=== PATIENT | male | born 1970 | race American Indian/Alaskan Native ===

== ENCOUNTER → 2018-03-27 | Outpatient (CLI) | payer BC ==
[~2018-03-27] MED LIST: XYLOCAINE TOPICAL 4% TP ONE
== END | disposition home or self-care (01) ==
LOC: WOUND 08:35
PROVIDERS: ATTEND Surgery
DX: E11.621 Type 2 diabetes mellitus with foot ulcer (principal); L97.512 Non-pressure chronic ulcer of other part of right foot with fat layer exposed; Z89.412 Acquired absence of left great toe; Z89.411 Acquired absence of right great toe; Z87.891 Personal history of nicotine dependence
CPT/HCPCS: 11042; 11045; G0463

== ENCOUNTER 2018-04-03 08:15 | Outpatient (CLI) | payer BC ==
[2018-04-03] MEDS ORDERED: XYLOCAINE TOPICAL 4% TP ONE ×2 (08:34→08:36)
== END 2018-04-03 08:16 | disposition home or self-care (01) ==
LOC: WOUND 08:15
PROVIDERS: ATTEND Surgery
DX: E11.621 Type 2 diabetes mellitus with foot ulcer (principal); L97.512 Non-pressure chronic ulcer of other part of right foot with fat layer exposed; Z89.412 Acquired absence of left great toe; Z89.411 Acquired absence of right great toe; Z87.891 Personal history of nicotine dependence

== ENCOUNTER 2018-04-08 07:43 | Outpatient (CLI) | payer BC ==
[2018-04-08 08:04] LABS: Basophils % (Auto) 0.8 % (0.0-1.8); Eosinophils # (Auto) 0.4 K/mm3 (0.0-0.4); Eosinophils % (Auto) 8.7 % (0.0-4.3); Hematocrit 30.2 % (35.5-45.6); Hemoglobin 10.3 gm/dl (11.8-15.2); Lymphocytes # (Auto) 1.6 K/mm3 (1.2-5.4); Lymphocytes % (Auto) 37.8 % (13.4-35.0); Mean Corpuscular HGB Conc 34 % (32-34); Mean Corpuscular Hemoglobin 30 pg (28-32); Mean Corpuscular Volume 89 fl (84-94); Monocytes # (Auto) 0.4 K/mm3 (0.0-0.8); Monocytes % (Auto) 8.6 % (0.0-7.3); Platelet Count 210 K/mm3 (140-440); Red Cell Distribution Width 13.8 % (13.2-15.2)
[2018-04-08 08:21] LABS: BUN/Creatinine Ratio 21; Blood Urea Nitrogen 19 mg/dL (9-20); Calcium 9.3 mg/dL (8.4-10.2); Hemolysis Index 1
--- NOTE | 2018-04-08 10:42 | Magnetic Resonance Report ---
MR LOWER EXTREMITY NON-JOINT RIGHT WITHOUT/WITH CONTRAST History: Type 2 diabetes with foot ulcer. Technique: Multisequence, multiplanar MRI before and after IV gadolinium was performed through the left foot. Comparison: No relevant comparison at this facility. Findings: Previous amputation of the great left toe is suspected, please correlate with surgical history. There is diffuse soft tissue swelling and enhancement consistent with cellulitis. There is a complex fluid collection with peripheral enhancement just distal to the first metatarsal head measuring 2.4 x 1.8 x 1.5 cm consistent with abscess. There are small fingerlike projections extending from this main collection between the first and second metatarsal heads and along dorsum of the foot overlying metatarsal heads 1-3 which is also consistent with abscess. Skin ulceration is noted distal to the first metatarsal head as well as on the dorsum of the foot. There is decreased T1 signal, bone marrow edema and mild enhancement of the distal first metatarsal consistent with osteomyelitis. The bone marrow signal in the remaining bones of the left foot is within normal limits. No additional areas of osteomyelitis is identified. The musculotendinous structures appear intact. The plantar fascia is intact. IMPRESSION: Cellulitis. Complex abscess in the distal foot as described. Osteomyelitis of the first metatarsal.
== END 2018-04-08 07:44 | disposition home or self-care (01) ==
LOC: MRI 07:43
PROVIDERS: ATTEND Surgery
DX: L02.611 Cutaneous abscess of right foot (principal); L03.115 Cellulitis of right lower limb; M86.8X7 Other osteomyelitis, ankle and foot; E11.621 Type 2 diabetes mellitus with foot ulcer; I10 Essential (primary) hypertension; Z87.891 Personal history of nicotine dependence
CPT/HCPCS: 36415; 73720; 80048; 83036; 85025; A9577

== ENCOUNTER 2018-04-16 07:50 | Outpatient (CLI) | payer BC | END 2018-04-16 07:51 | disposition home or self-care (01) | LOC: WOUND 07:50 | PROVIDERS: ATTEND Surgery | DX: E11.621 Type 2 diabetes mellitus with foot ulcer (principal); L97.512 Non-pressure chronic ulcer of other part of right foot with fat layer exposed; Z89.412 Acquired absence of left great toe; Z89.411 Acquired absence of right great toe; Z87.891 Personal history of nicotine dependence | CPT/HCPCS: 82962; G0277; 99183 ==

== ENCOUNTER 2018-04-17 07:49 | Outpatient (CLI) | payer BC | END 2018-04-17 07:50 | disposition home or self-care (01) | LOC: WOUND 07:49 | PROVIDERS: ATTEND Surgery | DX: E11.621 Type 2 diabetes mellitus with foot ulcer (principal); L97.512 Non-pressure chronic ulcer of other part of right foot with fat layer exposed; Z89.412 Acquired absence of left great toe; Z89.411 Acquired absence of right great toe; Z87.891 Personal history of nicotine dependence | CPT/HCPCS: 11042; 11045; 82962; G0277; 99183 ==

== ENCOUNTER 2018-04-18 12:04 | Day surgery (SDC) | payer BC ==
[~2018-04-18 12:04] MED LIST changes: +HEPARIN SUB-Q NR; -XYLOCAINE TOPICAL 4% TP ONE
[2018-04-18] MEDS ORDERED: DILAUDID IV PRN ×2 (13:21→15:54)
[2018-04-18] MEDS ORDERED: ZOFRAN IV PRN ×2 (13:21→15:54)
--- NOTE | 2018-04-18 13:22 | Anesthesia Consultation ---
Anesthesia Consult and Med Hx Date of service: 04/18/18 - Airway Anesthetic Teeth Evaluation: Good ROM Head & Neck: Adequate Mental/Hyoid Distance: Adequate Mallampati Class: Class II Intubation Access Assessment: Probably Good - Pulmonary Exam CTA: Yes - Cardiac Exam Cardiac Exam: RRR - Pre-Operative Health Status ASA Pre-Surgery Classification: ASA2 Proposed Anesthetic Plan: General (Ga with LMA) - Pulmonary Hx Smoking: Yes (FORMER FROM [id number]) Hx Asthma: No Hx Respiratory Symptoms: No SOB: No COPD: No Hx Pneumonia: No Hx Sleep Apnea: No - Cardiovascular System Hx Hypertension: Yes (most likely undiagnoses and untreated) - Central Nervous System Hx Psychiatric Problems: No - Endocrine Hx Non-Insulin Dependent Diabetes: Yes (non compliant with meds x 4 years) - Hematic Hx Anemia: Yes - Other Systems Hx Cancer: No
--- NOTE | 2018-04-18 13:22 | Anesthesia Day of Surgery ---
Anesthesia Day of Surgery - Day of Surgery Patient Examined: Yes Patient H&P Reviewed: Yes Patient is NPO: Yes
[2018-04-18] MEDS ORDERED: ZOSYN/NS 4.5GM/100ML 4.5 GM/100 ML VIAL IV SCH (14:00)
[2018-04-18] MEDS ORDERED: VERSED IV NR (14:00)
[2018-04-18] MEDS ORDERED: LACTATED RINGERS 1,000 ML IV SCH (14:00)
[2018-04-18] MEDS ORDERED: SUBLIMAZE ONE (14:53)
[2018-04-18] MEDS ORDERED: VERSED ONE (14:55)
[2018-04-18] MEDS ORDERED: DIPRIVAN 10 MG/ML IV ONE ×2 (14:56)
[2018-04-18] MEDS ORDERED: ZOFRAN ONE (15:10)
[2018-04-18] MEDS ORDERED: NACL 0.9% IR ONE (15:10)
--- NOTE | 2018-04-18 15:50 | Procedure Note ---
Date of procedure: 04/18/18 Pre-op diagnosis: Osteomyelitis/abscess of right 1st metatarsal head Post-op diagnosis: other (Osteomyelitis of right 1st metatarsal head) Procedure: Right 1st transmetatarsal amputation Description of procedure: Pt was placed supine on the OR table. General anesthesia by LMA was administered. The right foot was prepped and draped. An incision was made connecting the right distal and right proximal foot wounds over the right 1st metatarsal head. The proximal portion of the right 1st proximal phalanx was present and this was sharply excised. The periosteum was then elevated off of the right 1st metatarsal head and distal shaft. The metatarsal head was amputated with a bone saw and was passed off of the table. No abscess was encountered as was suggested on the pt's pre-op MRI. Hemostasis was obtained with the Bovie. The wound was packed open with a dilute, Betadine moistened Kerlix roll followed by a 2nd Kerlix roll about the foot and ankle. Pt tolerated the procedure well. He was taken to PACU in stable condition. Anesthesia: other (LMA) Surgeon: RAVINDRA CERNA Estimated blood loss: 50-100ml Pathology: list (1) Right 1st proximal phalanx 2) Right 1st metatarsal head) Specimen disposition: to lab Condition: stable Disposition: PACU
[2018-04-18 16:25] VITALS: BP 120/81
== END 2018-04-18 17:08 | disposition home or self-care (01) ==
LOC: OR 12:04
PROVIDERS: ATTEND Surgery
DX: M86.8X7 Other osteomyelitis, ankle and foot (principal); E13.10 Other specified diabetes mellitus with ketoacidosis without coma; E78.00 Pure hypercholesterolemia, unspecified; I10 Essential (primary) hypertension; Z86.2 Personal history of diseases of the blood and blood-forming organs and certain disorders involving the immune mechanism; Z91.19 Patient's noncompliance with other medical treatment and regimen; Z87.891 Personal history of nicotine dependence; Z79.899 Other long term (current) drug therapy; Z79.4 Long term (current) use of insulin; Z82.49 Family history of ischemic heart disease and other diseases of the circulatory system
CPT/HCPCS: 28820; 82962; 88304; 88311; J1644; J2250; J2405; J2543; J2704; J3010; J7120; 88302

== ENCOUNTER 2018-04-22 07:52 | Outpatient (CLI) | payer BC ==
[~2018-04-22 07:52] MED LIST changes: -HEPARIN SUB-Q NR; +XYLOCAINE TOPICAL 4% TP ONE
== END 2018-04-22 07:53 | disposition home or self-care (01) ==
LOC: WOUND 07:52
PROVIDERS: ATTEND Surgery
DX: T87.89 Other complications of amputation stump (principal); E11.621 Type 2 diabetes mellitus with foot ulcer; L97.512 Non-pressure chronic ulcer of other part of right foot with fat layer exposed; Z87.891 Personal history of nicotine dependence; Y83.5 Amputation of limb(s) as the cause of abnormal reaction of the patient, or of later complication, without mention of misadventure at the time of the procedure
CPT/HCPCS: 82962; G0277; 99183

== ENCOUNTER 2018-04-23 07:48 | Outpatient (CLI) | payer BC ==
[2018-04-23] MEDS ORDERED: XYLOCAINE TOPICAL 4% TP ONE ×2 (11:08→11:12)
[2018-04-23] MEDS ORDERED: DAKIN'S FULL STRENGTH TP ONE (11:30)
== END 2018-04-23 07:49 | disposition home or self-care (01) ==
LOC: WOUND 07:48
PROVIDERS: ATTEND Surgery
DX: T87.89 Other complications of amputation stump (principal); E11.621 Type 2 diabetes mellitus with foot ulcer; L97.512 Non-pressure chronic ulcer of other part of right foot with fat layer exposed; Z87.891 Personal history of nicotine dependence; Y83.5 Amputation of limb(s) as the cause of abnormal reaction of the patient, or of later complication, without mention of misadventure at the time of the procedure
CPT/HCPCS: 11043; 11046; 82962; G0277; 99183

== ENCOUNTER 2018-04-24 07:50 | Outpatient (CLI) | payer BC | END 2018-04-24 07:51 | disposition home or self-care (01) | LOC: WOUND 07:50 | PROVIDERS: ATTEND Surgery | DX: T87.89 Other complications of amputation stump (principal); E11.621 Type 2 diabetes mellitus with foot ulcer; L97.512 Non-pressure chronic ulcer of other part of right foot with fat layer exposed; Z87.891 Personal history of nicotine dependence; Y83.5 Amputation of limb(s) as the cause of abnormal reaction of the patient, or of later complication, without mention of misadventure at the time of the procedure | CPT/HCPCS: 82962; G0277; 99183 ==

== ENCOUNTER 2018-04-25 07:50 | Outpatient (CLI) | payer BC | END 2018-04-25 07:51 | disposition home or self-care (01) | LOC: WOUND 07:50 | PROVIDERS: ATTEND Surgery | DX: T87.89 Other complications of amputation stump (principal); E11.621 Type 2 diabetes mellitus with foot ulcer; L97.512 Non-pressure chronic ulcer of other part of right foot with fat layer exposed; Z87.891 Personal history of nicotine dependence; Y83.5 Amputation of limb(s) as the cause of abnormal reaction of the patient, or of later complication, without mention of misadventure at the time of the procedure | CPT/HCPCS: 82962; G0277; 99183 ==

== ENCOUNTER 2018-04-26 07:49 | Outpatient (CLI) | payer BC ==
[2018-04-26] MEDS ORDERED: XYLOCAINE TOPICAL 2% 5ML TP ONE (08:35)
== END 2018-04-26 07:50 | disposition home or self-care (01) ==
LOC: WOUND 07:49
PROVIDERS: ATTEND Surgery
DX: T87.89 Other complications of amputation stump (principal); E11.621 Type 2 diabetes mellitus with foot ulcer; L97.512 Non-pressure chronic ulcer of other part of right foot with fat layer exposed; Z87.891 Personal history of nicotine dependence; Y83.5 Amputation of limb(s) as the cause of abnormal reaction of the patient, or of later complication, without mention of misadventure at the time of the procedure
CPT/HCPCS: 82962; G0277; 99183

== ENCOUNTER 2018-04-29 07:48 | Outpatient (CLI) | payer BC | END 2018-04-29 07:49 | disposition home or self-care (01) | LOC: WOUND 07:48 | PROVIDERS: ATTEND Surgery | DX: T87.89 Other complications of amputation stump (principal); E11.621 Type 2 diabetes mellitus with foot ulcer; L97.512 Non-pressure chronic ulcer of other part of right foot with fat layer exposed; Z87.891 Personal history of nicotine dependence; Y83.5 Amputation of limb(s) as the cause of abnormal reaction of the patient, or of later complication, without mention of misadventure at the time of the procedure | CPT/HCPCS: 82962; G0277; 99183 ==

== ENCOUNTER 2018-04-30 07:47 | Outpatient (CLI) | payer BC | END 2018-04-30 07:48 | disposition home or self-care (01) | LOC: WOUND 07:47 | PROVIDERS: ATTEND Surgery | DX: T87.89 Other complications of amputation stump (principal); E11.621 Type 2 diabetes mellitus with foot ulcer; L97.512 Non-pressure chronic ulcer of other part of right foot with fat layer exposed; Z87.891 Personal history of nicotine dependence; Y83.5 Amputation of limb(s) as the cause of abnormal reaction of the patient, or of later complication, without mention of misadventure at the time of the procedure | CPT/HCPCS: 82962; G0277; 99183 ==

== ENCOUNTER 2018-05-01 07:50 | Outpatient (CLI) | payer BC ==
[2018-05-01] MEDS ORDERED: XYLOCAINE TOPICAL 4% TP ONE ×2 (11:03→12:29)
== END 2018-05-01 07:51 | disposition home or self-care (01) ==
LOC: WOUND 07:50
PROVIDERS: ATTEND Surgery
DX: T87.89 Other complications of amputation stump (principal); E11.621 Type 2 diabetes mellitus with foot ulcer; L97.512 Non-pressure chronic ulcer of other part of right foot with fat layer exposed; Z87.891 Personal history of nicotine dependence; Y83.5 Amputation of limb(s) as the cause of abnormal reaction of the patient, or of later complication, without mention of misadventure at the time of the procedure
CPT/HCPCS: 11042; 11045; 82962; G0277; 99183

== ENCOUNTER 2018-05-02 07:54 | Outpatient (CLI) | payer BC | END 2018-05-02 07:55 | disposition home or self-care (01) | LOC: WOUND 07:54 | PROVIDERS: ATTEND Surgery | DX: T87.89 Other complications of amputation stump (principal); E11.621 Type 2 diabetes mellitus with foot ulcer; L97.512 Non-pressure chronic ulcer of other part of right foot with fat layer exposed; Z87.891 Personal history of nicotine dependence; Y83.5 Amputation of limb(s) as the cause of abnormal reaction of the patient, or of later complication, without mention of misadventure at the time of the procedure | CPT/HCPCS: 82962; G0277; 99183 ==

== ENCOUNTER 2018-05-03 07:50 | Outpatient (CLI) | payer BC | END 2018-05-03 07:51 | disposition home or self-care (01) | LOC: WOUND 07:50 | PROVIDERS: ATTEND Surgery | DX: T87.89 Other complications of amputation stump (principal); E11.621 Type 2 diabetes mellitus with foot ulcer; L97.512 Non-pressure chronic ulcer of other part of right foot with fat layer exposed; Z87.891 Personal history of nicotine dependence; Y83.5 Amputation of limb(s) as the cause of abnormal reaction of the patient, or of later complication, without mention of misadventure at the time of the procedure | CPT/HCPCS: 82962; G0277; 99183 ==

== ENCOUNTER 2018-05-06 07:50 | Outpatient (CLI) | payer BC | END 2018-05-06 07:51 | disposition home or self-care (01) | LOC: WOUND 07:50 | PROVIDERS: ATTEND Surgery | DX: T87.89 Other complications of amputation stump (principal); E11.621 Type 2 diabetes mellitus with foot ulcer; L97.512 Non-pressure chronic ulcer of other part of right foot with fat layer exposed; Z87.891 Personal history of nicotine dependence; Y83.5 Amputation of limb(s) as the cause of abnormal reaction of the patient, or of later complication, without mention of misadventure at the time of the procedure | CPT/HCPCS: 82962; G0277; 99183 ==

== ENCOUNTER 2018-05-07 07:55 | Outpatient (CLI) | payer BC | END 2018-05-07 07:56 | disposition home or self-care (01) | LOC: WOUND 07:55 | PROVIDERS: ATTEND Surgery | DX: T87.89 Other complications of amputation stump (principal); E11.621 Type 2 diabetes mellitus with foot ulcer; L97.512 Non-pressure chronic ulcer of other part of right foot with fat layer exposed; Z87.891 Personal history of nicotine dependence; Y83.5 Amputation of limb(s) as the cause of abnormal reaction of the patient, or of later complication, without mention of misadventure at the time of the procedure | CPT/HCPCS: 82962; G0277; 99183 ==

== ENCOUNTER 2018-05-08 07:52 | Outpatient (CLI) | payer BC | END 2018-05-08 07:53 | disposition home or self-care (01) | LOC: WOUND 07:52 | PROVIDERS: ATTEND Surgery | DX: T87.89 Other complications of amputation stump (principal); E11.621 Type 2 diabetes mellitus with foot ulcer; L97.512 Non-pressure chronic ulcer of other part of right foot with fat layer exposed; Z87.891 Personal history of nicotine dependence; Y83.5 Amputation of limb(s) as the cause of abnormal reaction of the patient, or of later complication, without mention of misadventure at the time of the procedure | CPT/HCPCS: 11042; 11045; 82962; G0277; 99183 ==

== ENCOUNTER 2018-05-09 08:07 | Outpatient (CLI) | payer BC | END 2018-05-09 08:08 | disposition home or self-care (01) | LOC: WOUND 08:07 | PROVIDERS: ATTEND Surgery | DX: T87.89 Other complications of amputation stump (principal); E11.621 Type 2 diabetes mellitus with foot ulcer; L97.512 Non-pressure chronic ulcer of other part of right foot with fat layer exposed; Z87.891 Personal history of nicotine dependence; Y83.5 Amputation of limb(s) as the cause of abnormal reaction of the patient, or of later complication, without mention of misadventure at the time of the procedure | CPT/HCPCS: 82962; G0277; 99183 ==

== ENCOUNTER 2018-05-10 07:55 | Outpatient (CLI) | payer BC | END 2018-05-10 07:56 | disposition home or self-care (01) | LOC: WOUND 07:55 | PROVIDERS: ATTEND Surgery | DX: T87.89 Other complications of amputation stump (principal); E11.621 Type 2 diabetes mellitus with foot ulcer; L97.512 Non-pressure chronic ulcer of other part of right foot with fat layer exposed; Z87.891 Personal history of nicotine dependence; Y83.5 Amputation of limb(s) as the cause of abnormal reaction of the patient, or of later complication, without mention of misadventure at the time of the procedure | CPT/HCPCS: 82962; G0277; 99183 ==

== ENCOUNTER 2018-05-15 07:56 | Outpatient (CLI) | payer BC ==
[2018-05-15] MEDS ORDERED: XYLOCAINE TOPICAL 4% TP ONE (11:08)
[2018-05-15] MEDS ORDERED: SILVER NITRATE TP ONE (13:00)
== END 2018-05-15 07:57 | disposition home or self-care (01) ==
LOC: WOUND 07:56
PROVIDERS: ATTEND Surgery
DX: T87.89 Other complications of amputation stump (principal); E11.621 Type 2 diabetes mellitus with foot ulcer; L97.512 Non-pressure chronic ulcer of other part of right foot with fat layer exposed; Z87.891 Personal history of nicotine dependence; Y83.5 Amputation of limb(s) as the cause of abnormal reaction of the patient, or of later complication, without mention of misadventure at the time of the procedure
CPT/HCPCS: 11042; 82962; G0277; 99183

== ENCOUNTER 2018-05-16 07:54 | Outpatient (CLI) | payer BC ==
[~2018-05-16 07:54] MED LIST changes: +SILVER NITRATE TP ONE; -XYLOCAINE TOPICAL 4% TP ONE
== END 2018-05-16 07:55 | disposition home or self-care (01) ==
LOC: WOUND 07:54
PROVIDERS: ATTEND Surgery
DX: T87.89 Other complications of amputation stump (principal); E11.621 Type 2 diabetes mellitus with foot ulcer; L97.512 Non-pressure chronic ulcer of other part of right foot with fat layer exposed; Z87.891 Personal history of nicotine dependence; Y83.5 Amputation of limb(s) as the cause of abnormal reaction of the patient, or of later complication, without mention of misadventure at the time of the procedure
CPT/HCPCS: 82962; G0277; 99183

== ENCOUNTER 2018-05-17 07:51 | Outpatient (CLI) | payer BC | END 2018-05-17 07:52 | disposition home or self-care (01) | LOC: WOUND 07:51 | PROVIDERS: ATTEND Surgery | DX: T87.89 Other complications of amputation stump (principal); E11.621 Type 2 diabetes mellitus with foot ulcer; L97.512 Non-pressure chronic ulcer of other part of right foot with fat layer exposed; Z87.891 Personal history of nicotine dependence; Y83.5 Amputation of limb(s) as the cause of abnormal reaction of the patient, or of later complication, without mention of misadventure at the time of the procedure | CPT/HCPCS: 82962; G0277; 99183 ==

== ENCOUNTER 2018-05-20 07:57 | Outpatient (CLI) | payer BC | END 2018-05-20 07:58 | disposition home or self-care (01) | LOC: WOUND 07:57 | PROVIDERS: ATTEND Surgery | DX: T87.89 Other complications of amputation stump (principal); E11.621 Type 2 diabetes mellitus with foot ulcer; L97.512 Non-pressure chronic ulcer of other part of right foot with fat layer exposed; Z87.891 Personal history of nicotine dependence; Y83.5 Amputation of limb(s) as the cause of abnormal reaction of the patient, or of later complication, without mention of misadventure at the time of the procedure | CPT/HCPCS: 82962; G0277; 99183 ==

== ENCOUNTER 2018-05-21 07:58 | Outpatient (CLI) | payer BC | END 2018-05-21 07:59 | disposition home or self-care (01) | LOC: WOUND 07:58 | PROVIDERS: ATTEND Surgery | DX: T87.89 Other complications of amputation stump (principal); E11.621 Type 2 diabetes mellitus with foot ulcer; L97.512 Non-pressure chronic ulcer of other part of right foot with fat layer exposed; Z87.891 Personal history of nicotine dependence; Y83.5 Amputation of limb(s) as the cause of abnormal reaction of the patient, or of later complication, without mention of misadventure at the time of the procedure | CPT/HCPCS: 82962; G0277; 99183 ==

== ENCOUNTER 2018-05-31 07:46 | Outpatient (CLI) | payer BC | END 2018-05-31 07:47 | disposition home or self-care (01) | LOC: WOUND 07:46 | PROVIDERS: ATTEND Surgery | DX: T87.89 Other complications of amputation stump (principal); E11.621 Type 2 diabetes mellitus with foot ulcer; L97.512 Non-pressure chronic ulcer of other part of right foot with fat layer exposed; Z87.891 Personal history of nicotine dependence; Y83.5 Amputation of limb(s) as the cause of abnormal reaction of the patient, or of later complication, without mention of misadventure at the time of the procedure | CPT/HCPCS: 82962; G0277; 99183 ==

== ENCOUNTER 2018-06-04 07:48 | Outpatient (CLI) | payer BC | END 2018-06-04 07:49 | disposition home or self-care (01) | LOC: WOUND 07:48 | PROVIDERS: ATTEND Surgery | DX: T87.89 Other complications of amputation stump (principal); E11.621 Type 2 diabetes mellitus with foot ulcer; L97.512 Non-pressure chronic ulcer of other part of right foot with fat layer exposed; Z87.891 Personal history of nicotine dependence; Y83.5 Amputation of limb(s) as the cause of abnormal reaction of the patient, or of later complication, without mention of misadventure at the time of the procedure | CPT/HCPCS: 82962; G0277; 99183 ==

== ENCOUNTER 2018-06-05 07:48 | Outpatient (CLI) | payer BC ==
[2018-06-05] MEDS ORDERED: XYLOCAINE TOPICAL 4% TP ONE ×2 (10:33)
[2018-06-05] MEDS ORDERED: XYLOCAINE TOPICAL 2% 5ML TP ONE (10:47)
== END 2018-06-05 07:49 | disposition home or self-care (01) ==
LOC: WOUND 07:48
PROVIDERS: ATTEND Surgery
DX: T87.89 Other complications of amputation stump (principal); E11.621 Type 2 diabetes mellitus with foot ulcer; L97.512 Non-pressure chronic ulcer of other part of right foot with fat layer exposed; Z87.891 Personal history of nicotine dependence; Y83.5 Amputation of limb(s) as the cause of abnormal reaction of the patient, or of later complication, without mention of misadventure at the time of the procedure
CPT/HCPCS: 11042; 82962; G0277; 99183